=== PATIENT | female | born 1940 | race Caucasian/White ===

== ENCOUNTER 2018-07-27 08:55 | Day surgery (SDC) | payer MEDICARE, OTHER ==
[~2018-07-27 08:55] MED LIST: ACETAMINOPHEN 1,000 MG/100 ML BTL IV ONE; CELECOXIB 100 MG CAPSULE PO ONE; CLINDAMYCIN PHOS/D5W 900MG 900 MG/50 ML BAG IVPB ONE; FAMOTIDINE 20MG TABLET PO ONE; MECLIZINE 25 MG TABLET PO ONE; METOCLOPRAMIDE 10 MG TABLET PO ONE; VANCOMYCIN HCL 1,000 MG in DEXTROSE 5 % IN WATER 250 ML IVPB ONE
[2018-07-27] MEDS ORDERED: KETAMINE HCL 100MG/1ML VIAL INJ ONE (08:56)
[2018-07-27] MEDS ORDERED: VANCOMYCIN HCL 1 GM VIAL IVPB ONE (08:56)
[2018-07-27] MEDS ORDERED: MIDAZOLAM HCL 2MG/2ML VIAL IV ONE (08:56)
[2018-07-27] MEDS ORDERED: BUPIVACAINE 0.5% W/EPI MPF 30 ML VIAL IVP ONE (08:56)
[2018-07-27] MEDS ORDERED: PROPOFOL 10 MG/ML VIAL IV ONE (08:56)
[2018-07-27] MEDS ORDERED: ROPIVACAINE HCL (NAROPIN) /PF 5MG/ML 20ML VIAL IV ONE (08:56)
[2018-07-27] MEDS ORDERED: DEXAMETHASONE 4 MG/ML 1ML VIAL IVP ONE (08:56)
[2018-07-27] MEDS ORDERED: LIDOCAINE 2% MDV (20MG/ML) 20ML VIAL IV ONE (08:56)
[2018-07-27] MEDS ORDERED: KETOROLAC 30 MG/ML VIAL IVP ONE (08:56)
[2018-07-27 10:14] LABS: ABO GROUP O; ANTIBODY SCREEN NEGATIVE (NEGATIVE); RH TYPE NEGATIVE
[2018-07-27] MEDS ORDERED: ONDANSETRON HCL IV 4 MG/2 ML VIAL IVP PRN (14:00)
[2018-07-27] MEDS ORDERED: DIPHENHYDRAMINE HCL 25 MG CAPSULE PO PRN (14:00)
[2018-07-27] MEDS ORDERED: KETOROLAC 30 MG/ML VIAL IVP PRN ×2 (14:00)
[2018-07-27] MEDS ORDERED: METOCLOPRAMIDE HCL 10 MG/2 ML VIAL IVP PRN (14:00)
[2018-07-27] MEDS ORDERED: NALOXONE 0.4 MG/1 ML VIAL IVP PRN (14:00)
[2018-07-27] MEDS ORDERED: DEXTROSE 5 % AND 0.9 % NACL 1,000 ML IV PRN (14:00)
[2018-07-27] MEDS ORDERED: MAGNESIUM HYDROXIDE 30 ML UDC PO PRN (14:00)
[2018-07-27] MEDS ORDERED: PROMETHAZINE HCL 12.5 MG in 0.9 % SODIUM CHLORIDE 100ML 50 ML IVPB PRN (14:00)
[2018-07-27] MEDS ORDERED: AL HYDROX/MAG HYDROX 30ML UD PO PRN (14:00)
[2018-07-27] MEDS ORDERED: ACETAMINOPHEN W/ CODEINE 300MG/60MG TABLET PO PRN ×2 (14:00)
[2018-07-27] MEDS ORDERED: ZOLPIDEM TARTRATE 5 MG TABLET PO PRN (14:00)
[2018-07-27] MEDS ORDERED: BISACODYL 10 MG SUPP RC PRN (14:00)
[2018-07-27] MEDS ORDERED: ACETAMINOPHEN W/ CODEINE 300MG/30MG TABLET PO PRN ×2 (14:00)
[2018-07-27] MEDS ORDERED: HYDROMORPHONE HCL 2 MG/ML VIAL IM PRN ×2 (14:00)
[2018-07-27] MEDS ORDERED: HYDROCODONE/APAP 7.5/325MG TABLET PO PRN ×2 (14:00)
[2018-07-27] MEDS ORDERED: TRAMADOL HCL 50 MG TABLET PO PRN (14:00)
[2018-07-27] MEDS ORDERED: HYDROCODONE/APAP 5/325MG TABLET PO PRN (14:00)
[2018-07-27] MEDS ORDERED: VANCOMYCIN HCL 1,000 MG in DEXTROSE 5 % IN WATER 250 ML IVPB SCH ×2 (14:00)
[2018-07-27] MEDS ORDERED: ACETAMINOPHEN 325 MG TAB PO PRN (14:00)
[2018-07-27] MEDS ORDERED: PATIENT OWN MED: ATENOLOL 50 MG PO SCH (15:45)
--- NOTE | 2018-07-27 18:02 | Rehab Evaluation ---
Patient Information - Patient Information Diagnosis: OA R knee, s/p R TKA Ordered Treatment: PT Evaluate and Treat Status: Initial Evaluation Surgery: Yes Date of Surgery: 07/27/18 (R TKA) History: Detail (Pt describes worsening R knee pain, weakness, and stiffness for the past several years.) Past Med/Chun Hx Detail: Detail Past Medical/Surgical Hx: PAST MEDICAL/SURGICAL HISTORY Past Surgical History Appy C scope Hernia repair Tonsils Laser skin CA treatment cardiac stent January 2017 PMH - Respiratory Hx Respiratory Disorders No PMH - Cardiovascular Hx Cardiovascular Disorders Yes Hx Abnormal EKG Yes Hx Cardiac Catheterization Yes Hx Hypertension Yes: running a little high right now Hx Coronary Artery Disease Yes Hx Coronary Stent Yes: 2016 Exercise Tolerance Fair Hx Transient Ischemic Attacks Yes: in past nothing recent (TIA) PMH - Neuro Hx Neurological Disorders Yes Hx Neuropathy Yes: feet Hx Transient Ischemic Attacks Yes: in past nothing recent (TIA) PMH - GI Hx Gastrointestinal Disorders Yes Hx Gastroesophageal Reflux Yes PMH - Hx Genitourinary Disorders No PMH - Endocrine Hx Endocrine Disorders Yes Hx Diabetes Yes: Dx'd 10- 15 yrs ago Hx Thyroid Disease Yes Hx of NIDDM Yes Comment: blood sugars run "very good" PMH - Musculoskeletal Hx Musculoskeletal Disorders Yes Hx Arthritis Yes: knees, hands, shoulders and back PMH - Psych Hx Psychiatric Problems No PMH - Hematology/Oncology Hx Hematology/Oncology Yes Disorders Hx Bruising Yes: on Plavix and Aspirin Hx Cancer Yes: skin CA Hx Blood Transfusion Reaction No Premorbid Status: Detail (Pt is retired; was ambulating independently w/o assistive device prior to surgery but was limited in walking and standing tolerance.) Social History: Detail (Lives w/ in single story home w/2 steps to enter , handrail on right side going up. Has tub/shower combination, toilet riser for standard height toilet and elevated toilet in half bath, no grab bars. Has front wheeled walker, single tip cane, and shower bench. will be available to help at home.) Precautions: [place], Fall - Time With Patient Total Time Spent With Patient (Min): 35 Treatment Procedures: Detail (PT Evaluation, initiated mobility.) Subjective Information - Subjective Information Per Patient (Pt was sleeping upon arrival, awakened easily and cooperative for therapy. Denied pain at rest, but experienced some discomfort w/mobility activities.) Objective Data - Pain Pain Present: Yes Pain Intensity: 2 Pain Scale Used: Numeric (1 - 10) - Mental Status Patient Orientation: Oriented x3 - Visual Perception Appears within normal limits for therapeutic activities - ROM Not within normal limits (Pt appears to have near-full extension of R knee at rest; she is able to flex to about 80 degrees in sitting at bedside. R hip and ankle and L hip, knee, ankle are grossly WNL.) - Strength/Tone Not within normal limits (R knee flexion and extension are grossly 3-/5; R hip flexion, abduction, adduction, and extension are grossly 3/5, R ankle df is 4/ 5. L LE muscle groups are grossly 4+/5.) - Coordination Appears within normal limits for therapeutic activities - Bed Mobility Needs Assist (Minimal assist needed to move R LE out of and into bed, min assist for coming to sitting from supine. Independently positioned self upon getting into bed.) - Transfers Needs Assist (CGA for sit<>stand transfers from bedside.) - Balance Balance Sitting: Good Balance Standing: Good (With front wheeled walker) - Sensation Intact (Reports neuropathy in B feet, but was able to feel light touch.) - Gait Detail (Ambulated 5 feet forward and back to bedside w/front wheeled walker and CGA.) Therapy Assessment - Therapy Assessment Detail (Pt exhibits mobility impairments consistent with her post-surgical condition. She is a good candidate for inpatient physical therapy.) Patient Education - Patient Education Teaching Topic: Disease Process, Equipment Use, Exercise/Activity, Signs/ Symptoms Response: Reinforcement Needed, Verbalize Understanding Teaching Method: Discussion Teaching Recipient: Patient, Family Barriers To Learning: None Problem List - Problem List Physical Therapy Problem List: Detail (1. Requires assist for bed mobility. 2. Requires assist for transfers. 3. Difficulty walking.) Goals - Goals Physical Therapy Goals: 1. Pt will safely and independently get into/out of bed. 2. Pt will safely and independently perform sit<>stand transfers with front-wheeled walker. 3. Pt will ambulate over household distances w/front wheeled walker w/supervision. 4. Pt will be independent in initial home exercise program. Prognosis - Prognosis Good Plan - Plan Physical Therapy Plan: Pt will be seen 1-2 times tomorrow for mobility and gait training, instruction/review of home exercise program, to ensure safe discharge to home environment.
[2018-07-27] MEDS: TRAMADOL HCL 50 MG TABLET PO PRN (18:13)
[2018-07-27] MEDS: VANCOMYCIN HCL 1,000 MG in DEXTROSE 5 % IN WATER 250 ML IVPB SCH ×2 (21:33)
[2018-07-27] MEDS: FERROUS SULFATE 325 MG TAB PO SCH (21:34)
[2018-07-27] MEDS: DOCUSATE SODIUM 100 MG CAPSULE PO SCH (21:34)
[2018-07-27] MEDS ORDERED: PATIENT OWN MED: PRAVASTATIN 40 MG PO SCH (22:00)
[2018-07-27] MEDS: HYDROCODONE/APAP 5/325MG TABLET PO PRN (23:02)
--- NOTE | 2018-07-28 01:03 | Operative Note ---
DATE OF SURGERY: 07/27/2018 PREOPERATIVE DIAGNOSIS: CHONDROCALCINOSIS RIGHT KNEE. POSTOPERATIVE DIAGNOSIS: CHONDROCALCINOSIS RIGHT KNEE. PROCEDURE: TOTAL RIGHT KNEE ARTHROPLASTY. SURGEON: ROGERS MATA M.D. ANESTHESIA: SPINAL. LEAH HE CRNA. COMPLICATIONS: NONE. BLOOD LOSS: MINIMAL. OPERATIVE FINDINGS: Severe chondrocalcinosis, calcium deposits, and some chondromalacia of the patella and medial compartment. COMPONENTS PLACED: 2 gram Vancomycin, cemented [employer] Journey II size 5 femoral component, size 3 tibial baseplate, a 13 mm thick tibial poly insert, and a 32 mm cemented patellar component. INDICATIONS FOR OPERATION: This is a 78-year-old female who has had persistent pain and dysfunction in her knee for years. She has had severe chondrocalcinosis. Basically, her meniscus was completely calcified on both sides. She has failed nonoperative treatments including an extensive amount of injections, anti-inflammatories, and therapy and she is schedule for surgery. I explained the risks and benefits to her in detail for her diagnosis and procedures including nerve injury, vessel injury, blood clot, need for further procedures, need for anticoagulation to prevent blood clots and risks associated with these medications and all of her questions were answered. The rehab and course were outlined and she agreed to proceed. PROCEDURE: The patient was brought to the O.R. and placed in the supine position for the proper surgery. Spinal anesthesia induced and the right lower extremity and knee were prepped and draped in sterile fashion. The right knee was prepped again with ChloraPrep after it was draped. Intraoperative time-out was performed. The knee was injected with 0.5% Marcaine with Epinephrine. The leg was exsanguinated with an Esmarch. The knee was flexed and the tourniquet inflated to 250 mmHg pressure. Next, the skin and subcutaneous tissues were dissected down to the capsule. We incised the capsule medially around the medial border of the of the patella to the tibial tubercle. We incised the vastus medialis in line with the fibers in a mid vastus approach. I everted the patella, partially resected the retropatellar fat pad. Elevated the capsule subperiosteally medially. She had severe chondral calcium deposits in the medial and lateral knee, some chondromalacia in the medial compartment and patella as well, grade 3 to 4. Next, we drilled the intercondylar drill hole and inserted the intramedullary guide marybeth with a 6 degree cutting block. We aligned the distal femoral condyles and pinned it in +2 mm position and cut the distal femoral condyles. Next, we placed the sizing jig in the distal femur and sized to be right on size 5. Through the previously placed pinholes, we placed the size 5 cutting jig. We dialed in the anterior cut so it would come out flush without notching. We cut that cut. It was a good cut. We pinned it and cut the remainder of the chamfer cuts in the usual fashion. Next, attention was turned to the resection collet. We placed the trial femoral component, pinned it in place and inserted the resection and reamed out and box osteotomed out the cruciate bone block. Next, attention was turned to the tibia. We exposed the tibia. We placed the external alignment jib with the spikes in the intertubercular groove off the central third of the tibial tubercle two fingerbreadths distally off the anterior tibial cortex and referenced for a 7 mm cut off the higher lateral plateau. We pinned the cutting jig provisionally with two anterior and posterior pins. We rechecked alignment of the cutting jig with a drop marybeth centered on the tibial anatomic axis. Once we had that aligned properly, we cross-pinned it to complete its fixation and cut the tibia. Next, we removed osteophytes from the posterior femoral condyles using a curved osteotome. Next, we inserted the spacer block and basically sized up to a size 13 mm spacer. This allowed for 2 to 3 mm of varus/valgus laxity in flexion and extension. Overall alignment of cuts in extension with the anatomic valgus orientation with the alignment rods centered on the hip joint and the ankle joint. Next, we took the knee into flexion. We sized the tibial baseplate to be a size 3. We replaced all trial components. Set the rotation of the tibial baseplate again in extension using the alignment rods centered on the hip joint and the ankle joint. We marked with electrocautery nava on the anterior tibial cortex off the laser nava of the tibial baseplate. Next, attention was turned to the patella. We measured the patella to be 21 mm. We set the cutting jig to 10 to 12 mm to allow for a 9 mm thick poly insert without cutting it too thin. We cut the patella and it was right on . We then chamfered off the lateral patellar facet, sized it to be a 32 mm. We medialized as much as possible and drilled three peg holes. We overdrilled them and placed the trial patella component. We mixed cement and did a trial range of motion. The patella tracked nicely hands free in full extension and flexion to 120 to 130 degrees and again, symmetric flexion and extension gaps. Next,, we took the knee into flexion. We set the tibial baseplate off the previously placed electrocautery nava, pinned it in place, and reamed out and keel-punched the keel hole. We placed a bone plug in the femoral canal hole. We irrigated all surface. We brought in a clean sheet and changed gloves and irrigated copiously. We pre- coated both surfaces and impacted down the femoral component and then the tibial component and placed the trial tibial poly liner and held the knee in extension. We clamped down the patellar component until the cement hardened and removed excess cement as we went. Next, we took the knee into flexion. We distracted the knee with bone hook and sponge. We injected the deep capsule superficially with 0.5% Marcaine with Epinephrine, 2 gm of tranexamic acid, and Exparel mixture working from deep to superficial and centrally to peripherally out to the periostium, patellar tendon , vastus medialis subcutaneous with our mixture. Next, we impacted down the real tibial poly insert and verified it was interlocked medially and laterally. Final range of motion revealed the same. We had full range of motion 0 to 140 to 150 degrees. Next, with the knee in slight flexion, we then closed the capsule and vastus split with a running #2 Quill suture securely. Next, we closed the skin securely with several #2-0 Vicryl buried stitches tightly. We placed Acticoat and provisional dressing and ALAINA wrap. The dressing will be changed to CLARE dressing prior to discharge, likely in 1 to 2 days. She tolerated the procedure well. No intraoperative complications. All sponge, needle, and blade counts correct. Recovery stable, neurovascularly intact. She will be sent to the Floor. cc: Dr. Schwab JOB NUMBER: [id number] MTDD
[2018-07-28] MEDS: HYDROCODONE/APAP 5/325MG TABLET PO PRN ×2 (03:30→08:07)
[2018-07-28 06:45] LABS: HEMATOCRIT 32.6 % (35.0-47.0); HEMOGLOBIN 10.3 gm/dl (11.6-16.0)
[2018-07-28] MEDS ORDERED: PATIENT OWN MED: LEVOTHYROXINE 50 MCG PO SCH (07:00)
[2018-07-28] MEDS ORDERED: PATIENT OWN MED: OMEPRAZOLE 20 MG PO SCH (07:00)
[2018-07-28] MEDS ORDERED: PATIENT OWN MED: METFORMIN 500 MG PO SCH (08:00)
[2018-07-28] MEDS: TRAMADOL HCL 50 MG TABLET PO PRN (09:37)
[2018-07-28] MEDS: DOCUSATE SODIUM 100 MG CAPSULE PO SCH (09:38)
[2018-07-28] MEDS: FERROUS SULFATE 325 MG TAB PO SCH (09:38)
--- NOTE | 2018-07-28 09:38 | Rehab Evaluation ---
Patient Information - Patient Information Diagnosis: OA R knee, s/p R TKA Ordered Treatment: OT Evaluate and Treat Status: Initial Evaluation Surgery: Yes Date of Surgery: 07/27/18 (R TKA) History: Detail (Pt describes worsening R knee pain, weakness, and stiffness for the past several years.) Past Medical/Surgical Hx: PAST MEDICAL/SURGICAL HISTORY Past Surgical History Appy C scope Hernia repair Tonsils Laser skin CA treatment cardiac stent January 2017 PMH - Respiratory Hx Respiratory Disorders No PMH - Cardiovascular Hx Cardiovascular Disorders Yes Hx Abnormal EKG Yes Hx Cardiac Catheterization Yes Hx Hypertension Yes: running a little high right now Hx Coronary Artery Disease Yes Hx Coronary Stent Yes: 2016 Exercise Tolerance Fair Hx Transient Ischemic Attacks Yes: in past nothing recent (TIA) PMH - Neuro Hx Neurological Disorders Yes Hx Neuropathy Yes: feet Hx Transient Ischemic Attacks Yes: in past nothing recent (TIA) PMH - GI Hx Gastrointestinal Disorders Yes Hx Gastroesophageal Reflux Yes PMH - Hx Genitourinary Disorders No PMH - Endocrine Hx Endocrine Disorders Yes Hx Diabetes Yes: Dx'd 10- 15 yrs ago Hx Thyroid Disease Yes Hx of NIDDM Yes Comment: blood sugars run "very good" PMH - Musculoskeletal Hx Musculoskeletal Disorders Yes Hx Arthritis Yes: knees, hands, shoulders and back PMH - Psych Hx Psychiatric Problems No PMH - Hematology/Oncology Hx Hematology/Oncology Yes Disorders Hx Bruising Yes: on Plavix and Aspirin Hx Cancer Yes: skin CA Hx Blood Transfusion Reaction No Premorbid Status: Detail (Pt is retired; was ambulating independently w/o assistive device prior to surgery but was limited in walking and standing tolerance. She was Ind with home mgmt, meal prep and laundry although spouse will be available to assist as needed.) Social History: Detail (Lives w/ in single story home w/2 steps to enter , handrail on right side going up. Has tub/shower combination with seat, toilet riser for standard height toilet and elevated toilet in half bath, no grab bars. Has front wheeled walker, single tip cane, wood machinist apprentice and shower bench. will be available to help at home.) Precautions: [place], Fall - Time With Patient Total Time Spent With Patient (Min): 35 Treatment Procedures: Detail (OT eval low complexity) Subjective Information - Subjective Information Per Patient Objective Data - Pain Pain Present: Yes (11/08) - Mental Status Patient Orientation: Oriented x3 - Visual Perception Appears within normal limits for therapeutic activities - ROM Within normal limits (Sonu UE AROM WNL) - Strength/Tone Within normal limits (Sonu UE strength WNL) - Coordination Appears within normal limits for therapeutic activities - Bed Mobility Independent (Ind with supine to sit) - Transfers Independent (Ind with sit to stand from EOB, toilet and chair heights.) - Balance Balance Sitting: Good Balance Standing: Good - Sensation Intact - Gait Detail (Pt ambulating in room with 2 wheeled walker Indly.) - ADL's/IADL's Detail (Pt educated re: modified LE dressing techniques. She was able to demonstrate Ind with doffing slipper socks using wood machinist apprentice and donning sweatpants and tennis shoes although she did not want to tie shoes. She reports her spouse will be available to assist with self cares as needed. Reviewed shower and kitchen safety and modifications, pt reports she will be taking a sponge bath for a while as her tub is tall. Pt verbalized understanding.) Therapy Assessment - Therapy Assessment Detail (Pt is Ind with modified LE dressing techniques using adaptive equipment. ) Problem List - Problem List Physical Therapy Problem List: Detail (1. Requires assist for bed mobility. 2. Requires assist for transfers. 3. Difficulty walking.) Occupational Therapy Problem List: Detail (No current IP OT problems identified. ) Goals - Goals Physical Therapy Goals: 1. Pt will safely and independently get into/out of bed. 2. Pt will safely and independently perform sit<>stand transfers with front-wheeled walker. 3. Pt will ambulate over household distances w/front wheeled walker w/supervision. 4. Pt will be independent in initial home exercise program. Occupational Therapy Goals: No current IP OT goals identified. Prognosis - Prognosis Good Plan - Plan Physical Therapy Plan: Pt will be seen 1-2 times tomorrow for mobility and gait training, instruction/review of home exercise program, to ensure safe discharge to home environment. Occupational Therapy Plan: No further IP OT recommended. Thank you for this referral.
[2018-07-28] MEDS: VANCOMYCIN HCL 1,000 MG in DEXTROSE 5 % IN WATER 250 ML IVPB SCH ×2 (09:39)
[2018-07-28] MEDS ORDERED: RIVAROXABAN 10 MG TABLET PO SCH (10:00)
[2018-07-28] MEDS ORDERED: CELECOXIB 100 MG CAPSULE PO SCH (10:00)
--- NOTE | 2018-07-28 10:15 | Physical Therapy Tx Note ---
Physical Therapy Tx Note - Treatment Note Tolerated: Fair Total Time Spent With Patient: 25 Physical Therapy Tx Note: Detail (The patient was up in chair when PT arrived. The patient was independent with sit to and from stand transfer.The patient ambulated with front wheeled walker a distance of 45 feet x 1 independently with WBAT on the R LE. The patient ambulated on 3 steps with use of railing and folded walker with supervision for safety. The patient was returned to room in a wheelchair and was independent with sit to supine transfer.The patient completed the TKA HEP including: supine heel slides, ankle pumps, quad sets, hamstring sets, SLR, gluteal sets. The patient has met all inpatient PT goals and is discharged from inpatient PT.) Physical Therapy Problem List: Detail (1. Requires assist for bed mobility. 2. Requires assist for transfers. 3. Difficulty walking.) Physical Therapy Goals: GOALS MET: 1. Pt will safely and independently get into /out of bed. 2. Pt will safely and independently perform sit<>stand transfers with front-wheeled walker. 3. Pt will ambulate over household distances w/ front wheeled walker w/supervision. 4. Pt will be independent in initial home exercise program. Physical Therapy Plan: The patient has met all inpatient PT goals and is discharged from inpatient PT. The patient is to receive Home PT.
[2018-07-28] MEDS ORDERED: PATIENT OWN MED: LOSARTAN 100 MG PO SCH (14:00)
== END 2018-07-28 11:25 | disposition home health service (06) ==
LOC: SUR 08:55 → MEDSURG 14:29 → SUR 07-28 11:25
PROVIDERS: ATTEND Orthopaedic Surgery
DX: M11.261 Other chondrocalcinosis, right knee (principal); I10 Essential (primary) hypertension; E78.00 Pure hypercholesterolemia, unspecified; E11.9 Type 2 diabetes mellitus without complications; Z79.01 Long term (current) use of anticoagulants; N19 Unspecified kidney failure; M22.41 Chondromalacia patellae, right knee; Z95.5 Presence of coronary angioplasty implant and graft
CPT/HCPCS: 27447; 01402; 85014; 85018; 86901; 86900; 86850; J1885; J3370 ×2; J2795; J3490 ×2; G8978; G8979 ×2; G8980; G8987; G8988; G8989; 97110; 97530; J7060